=== PATIENT | male | born 1965 | race African-American/Black ===

== ENCOUNTER 2023-04-09 18:17 | Emergency (ER) | payer OTHER, SELFPAY ==
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
[2023-04-09 18:21] VITALS: BP 181/92; PULSE 81; RESP 15; TEMP 36.4; O2SAT 100
[2023-04-09] MEDS: ACETAMINOPHEN 500 MG TABLET 1000 MG PO (19:36)
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
[2023-04-09 20:15] VITALS: BP 128/82; PULSE 73; O2SAT 98
== END 2023-04-09 20:41 | disposition home or self-care (01) ==
PROVIDERS: Emergency Provider Physician Assistant
DX: S09.90XA Unspecified injury of head, initial encounter (principal); S16.1XXA Strain of muscle, fascia and tendon at neck level, initial encounter; E11.9 Type 2 diabetes mellitus without complications; I10 Essential (primary) hypertension; M47.812 Spondylosis without myelopathy or radiculopathy, cervical region; V49.40XA Driver injured in collision with unspecified motor vehicles in traffic accident, initial encounter
CPT/HCPCS: 70450; 72125; 99284; A9270

== ENCOUNTER 2025-01-14 12:55 | Outpatient (CLI) | payer OTHER, SELFPAY ==
--- NOTE | ~2025-01-14 | CT_ITS ---
CT sinus wo con Ordering provider: Beatrice Mosley History: . NASAL POLYPS . Comparison: April 09, 2023 Technique: Thin slice Scans CT of the paranasal sinuses was performed with coronal and sagittal refor matted images. No IV contrast. . Automated exposure control and iterative reconstruction technique w ere employed. The dose-length product was 223.41 mGy-cm. Findings: NASAL SEPTUM: Mild right nasal septal deviation. OSTEOMEATAL UNITS: Postoperative changes seen in the medial wall of both maxillary sinuses. NASAL TURBINATES AND NASOPHARYNX: Normal inferior 10 minutes. PARANASAL SINUSES: Bilateral maxillary and sphenoid sinus disease. right ethmoid, and frontal sinus disease. Density in the right frontal and ethmoid sinuses which may indicate inspissated mucus versus fungal infection. Clinical evaluation advised. VISUALIZED MASTOIDS: Normal as visualized. BONES: Normal. SUPERFICIAL SOFT TISSUES/VISUALIZED BRAIN PARENCHYMA: Normal. IMPRESSION: Pansinusitis. Postoperative changes in the medial wall of both maxillary sinuses. Increased density in the right frontal and ethmoid sinuses which may indicate inspissated mucus versu s fungal infection. Further evaluation advised. Reviewed, dictated and finalized at location A. IMPRESSION: Pansinusitis. Postoperative changes in the medial wall of both maxillary sinuses. Increased density in the right frontal and ethmoid sinuses which may indicate i nspissated mucus versus fungal infection. Further evaluation advised.
--- OUTSIDE RECORDS SUMMARY | 2025-01-14 13:01 | XMS_ITS | Clinical Summary ---
Author Organization [facility] Address [address] [facility] [address] [place] [phone] Phone Care Team Providers Care Still Tender Name Role Phone Bernabe Cooper MD Primary Care Provider [phone] Demetris Barbosa MD Unavailable [phone] Allergies Active Allergy Reactions Criticality Noted Date Comments Aspirin Unknown Low 03/17/2017 Patient states he was told not to take ASA since he has asthma. Bee Pollen Unknown 03/17/2017 Per allergy testing - Dr. Rolon Grass Pollen Unknown 01/25/2022 Allergy testing indicated Mold Unknown 01/25/2022 Per allergy testing Medications fluticasone (FLONASE) 50 mcg/actuation nasal spray 2 sprays daily. 3 spray 4 03/19/20 17 Active flash glucose scanning reader misc 1 Device daily Please dispense 1 freestyle antonia reader 1 each 11/15/19 19 Active nebulizer and compressor deviceIndications :Wheezing 1 Units as directed Que Respironics InnoSpire Go Portable Mesh Nebulizer 1 each 01/04/20 20 Active clindamycin (CLEOCIN T) 1 % lotionIndications :Scalp inflammation Apply 1 application topically 2 (two) times a day 09/18/19 21 Active olopatadine (PATADAY) 0.2 % ophthalmic solutionIndicatio ns:Allergic Conjunctivitis Administer 1 drop into both eyes daily 15 mL 7 08/05/[address] (NexIUM) 40 mg capsule Take 1 capsule (40 mg total) by mouth daily before breakfast 30 capsule 5 08/20/19 22 Active Additional Information Patient taking differently:40 mg oralDaily PRN, Reported on 02/01/2022 ketoconazole 1 % shampoo Apply 1 application topically every 3 (three) days Active clindamycin (CLEOCIN T) 1 % external solution APPLY ON SCALP ONCE DAILY IN THE MORNING 01/18/20 22 Active albuterol HFA (PROVENTIL HFA,VENTOLIN HFA,PROAIR HFA) 90 mcg/actuation inhalerIndication s:Bronchospasm Prevention Inhale 1-2 puffs every 6 (six) hours as needed for wheezing 1 each 04/26/20 22 Active dicyclomine (BENTYL) 20 mg tablet Take 1 tablet (20 mg total) by mouth every 6 (six) hours 120 tablet 08/03/19 23 Active hydrOXYzine (ATARAX) 10 mg tablet Take 1 tablet (10 mg total) by mouth every 4 (four) hours as needed for itching 90 tablet 08/03/19 23 Active mometasone (ELOCON) 0.1 % cream APPLY CREAM TOPICALLY ON FOREHEAD ONCE DAILY 09/01/19 23 Active albuterol 2.5 mg /3 mL (0.083 %) nebulizer solution Take 3 mL (2.5 mg total) by nebulization every 6 (six) hours as needed for wheezing or shortness of breath 60 mL 08/08/19 24 Active metFORMIN (GLUCOPHAGE) 500 mg tablet Take 1 tablet (500 mg total) by mouth 2 (two) times a day with meals 180 tablet 09/14/19 24 Active blood-glucose sensor (FreeStyle Antonia 3 Sensor) device 1 Units every 2 (two) weeks Antonia 3 reader 2 units a month 2 each 09/25/19 24 Active testosterone 20.25 mg/1.25 gram (1.62 %) gel in metered-dose pump Apply 1 Pump topically daily 75 g 12/11/19 24 Active betamethasone dipropionate (DEL-BETA) 0.05 % cream Apply topically 2 (two) times a day 45 g 12/11/19 24 Active albuterol-budeson trevor (Airsupra) 90-80 mcg/actuation HFA aerosol inhaler Inhale 1 puff every 4 (four) hours 5.9 g 12/11/19 24 Active ezetimibe-simvast atin (VYTORIN) 10-20 mg per tablet Take 1 tablet by mouth nightly 90 tablet 4 12/12/19 24 Active insulin degludec (TRESIBA) 100 unit/mL (3 mL) pen for injection INJECT 0.1 ML (10 UNITS TOTAL) UNDER THE SKIN DAILY 3 mL 3 02/07/20 24 Active pen needle, diabetic (NovoFine Plus) 32 gauge x 1/6 needle Inject 1 Units under the skin daily 100 each 02/24/20 24 Active semaglutide 0.25 mg or 0.5 mg (2 mg/3 mL) pen injector injectionIndicati ons:type 2 diabetes mellitus Inject 0.5 mg under the skin every 7 days 3 mL 02/28/20 24 Active montelukast (SINGULAIR) 10 mg tablet Take 1 tablet (10 mg total) by mouth nightly 90 tablet 3 02/28/20 24 Active blood-glucose sensor (FreeStyle Antonia 3 Plus Sensor) device 1 Units every 2 (two) weeks 2 each 05/12/20 24 Active ergocalciferol (VITAMIN D) 50,000 unit capsule TAKE 1 CAPSULE BY MOUTH ONE TIME PER WEEK 12 capsule 1 08/03/19 25 Active losartan-hydrochl orothiazide (HYZAAR) 100-25 mg per tablet TAKE 1 TABLET BY MOUTH EVERY DAY 90 tablet 3 08/09/19 25 Active cetirizine (ZyrTEC) 10 mg tablet Take 1 tablet (10 mg total) by mouth daily as needed for allergies 30 tablet 11 01/05/20 25 Active prednisoLONE acetate (PRED FORTE) 1 % ophthalmic suspension Apply 2 drops to the left nostril in head back position twice a day for 14 days 5 mL 01/05/20 25 Active pseudoephedrine (SUDAFED) 30 mg tabletIndications :Nasal Congestion Take 1 tablet (30 mg total) by mouth 2 (two) times a day as needed for congestion 30 tablet 01/05/20 25 Active budesonide (PULMICORT) 0.5 mg/2 mL nebulizer solution Mix 1 capsule/ampule in 250 mL of saline irrigations (NeilMed Sinus Rinse Bottle) and irrigate each nostril with half of the bottle twice daily. 360 mL 4 01/05/20 25 Active cetirizine (ZyrTEC) 10 mg tablet Take 1 tablet (10 mg total) by mouth daily as needed for allergies 025 Discontinu ed(Alterna te therapy) budesonide (PULMICORT) 0.5 mg/2 mL nebulizer solution Mix 1 capsule/ampule in 250 mL of saline irrigations (NeilMed Sinus Rinse Bottle) and irrigate each nostril with half of the bottle twice daily. 360 mL 4 09/15/19 23 025 Discontinu ed(Reorder ) prednisoLONE acetate (PRED FORTE) 1 % ophthalmic suspension Apply 2 drops to the right nostril in head back position twice a day for 14 days 5 mL 06/22/20 24 025 Discontinu ed(Alterna te therapy) amoxicillin-clavu lanate (AUGMENTIN) 875-125 mg per tablet Take 1 tablet by mouth 2 (two) times a day for 10 days 20 tablet 12/22/19 25 025 Active Problems Problem Noted Date Diagnosed Date Type 2 diabetes mellitus with hyperglycemia 11/2023 QUINTIN on CPAP 08/03/2022 Assessment & Plan (12/11/2023 2:35 PM CDT): Patient states he has not been able to tolerate his current CPAP Preventative health care 04/26/2022 Assessment & Plan (12/11/2023 8:39 AM CDT): Patient here to today for physical exam. The patient was evaluated and all health maintenance objectives were discussed and addressed. Assessment & Plan (04/26/2022 8:12 AM CDT): Patient here to today for physical exam. The patient was evaluated and all health maintenance objectives were discussed and addressed. SOB (shortness of breath) 12/02/2019 Fatigue 07/29/2019 Sleep-disordered breathing 07/29/2019 Assessment & Plan (01/04/2020 3:26 PM CDT): He has not had his sleep study he will follow-up with Dr. Clifton Cervical disc disease 08/13/2018 Assessment & Plan (04/26/2022 9:14 AM CDT): Reports no significant issues with neck pain currently Assessment & Plan (08/13/2018 3:52 PM BOX SPRING FRAME BUILDER): He was seen in emergency room had an x-ray of his cervical spine which showed evidence of possible C6-C7 disease he is having numbness tingling down his right arm X-ray is consistent with a cervical disc disease we will order an MRI consider orthopedic spine Malignant neoplasm screen 07/22/2018 Overview (07/22/2018): Added automatically from request for surgery [id number] Chest wall pain 07/15/2018 Assessment & Plan (05/21/2019 2:39 PM BOX SPRING FRAME BUILDER): We had a discussion today about his chest wall muscle discomfort I believe this is most likely musculoskeletal begin with an EKG to rule out cardiac etiology. Patient is improving somewhat from his asthma exacerbation. Assessment & Plan (07/22/2018 11:23 AM BOX SPRING FRAME BUILDER): Muscular: Treat with Naprosyn 500 mg 1 p.o. B.i.d. P.r.n. with food for 10 days and Flexeril muscle relaxer p.r.n.. If no improvement contact office. Patient verbalizes understanding. Type 2 diabetes mellitus wit hout complication, with long-term current use of insulin 12/30/2017 Assessment & Plan (11/09/2022 10:39 AM CDT): CGM shows an average blood sugar of 200 over the last 90 days. Patient reports that he is not been attentive to a low-carbohydrate diet. We will check an A1c today we discussed various options for treatment however he believes that he can be a little more attentive to diet. Continues on Tresiba. Continues on Ozempic we will increase this dose to 1 mg Assessment & Plan (08/03/2022 10:46 AM BOX SPRING [employer] BUILDER): We had a long discussion about diabetes today his the day CGM is showing an average of 150. Last A1c of 6.6. He states he is having quite a bit of GI distress will switch him to metformin ER. A1c to be due today Assessment & Plan (04/26/2022 9:11 AM CDT): We had a long discussion about diabetes today his the day CGM is showing an average of 155 however he has not been using medicine appropriately he takes metformin/Tresiba as needed he has stopped Ozempic we will restart him on metformin 500. Restarted Ozempic 0.5. Discussed Tresiba after A1c is complete today Assessment & Plan (01/04/2020 3:26 PM CDT): Antonia reader is showing that his 90 day average is 160/30 day average 131. At this point A1c is due on March 03 continue current regimen Assessment & Plan (12/17/2019 8:39 AM CDT): We will recheck an A1c today is last was controlled however I am concerned that today's reading will be high, he does have a Antonia reader. Despite using this CGM he is still having episodes of elevated blood sugars. He has been checking his blood sugars 4 times a day and injecting insulin multiple times on occasion. Addendum note A1c is 8.5 he has poorly controlled, we will adjust his insulin Assessment & Plan (06/11/2019 1:42 PM BOX SPRING FRAME BUILDER): I have reviewed past medical, surgical, family, social and medication history. We have discussed the need for balanced nutrition utilizing the plate method which can be found at myplate.gov. We have discussed glycemic goals. Patient will call for a blood sugar below 80 or above 200. I advise patient to complete annual eye exams and biannual dental exams. I have encouraged patient to check feet nightly for any changes and to wear appropriate foot wear. I have explained to patient the importance of compliance with medications and follow up. I have also explained the risks of uncontrolled diabetes to patient, including blindness, loss of limp, kidney failure, stroke or heart attack. Patient verbalized understanding. Assessment & Plan (11/14/2018 1:05 PM CDT): Diabetes is improving with treatment. Regular aerobic exercise. Diabetes will be reassessed in 6 months. His c GM states that his 90 day average is 125 recheck him today Assessment & Plan (05/16/2018 1:05 PM [employer]OX SPRING [employer] BUILDER): Diabetic control has been good with review of patient's last a1c, I have reviewed and addressed all of the other diabetic benchmarks including the diabetic eye exam, foot exam, renal protection, reaching LDL goal of <100. Will make adjustments as needed to current regimen. a1c 5.3 excellent Assessment & Plan (02/21/2018 2:07 PM CDT): Diabetes is improving with treatment. Regular aerobic exercise. Diabetes will be reassessed in 6 months. He is doing tremendously well we reviewed his see GM numbers his last week average was 107 he has since stopped his insulin he has decreased the metformin to once a day We will recheck an A1c on April 01 Assessment & Plan (01/02/2018 10:06 AM CDT): This is a new onset. A1c of 10.1. He was diagnosed essentially in the emergency room we will begin with continue his metformin add low-dose tresiba 8 units at night. Continue to follow him here as clinical course dictates he will be started on a for[MD] natonia system We will also refer him to diabetic teaching see him back in the next few weeks Allergic fungal sinusitis (AFS) 12/10/2017 Assessment & Plan (04/26/2022 9:10 AM CDT): He follows closely with his ENT physician and continues on nasal saline irrigation/budesonide Assessment & Plan (12/12/2017 10:12 AM CDT): As per ENT/allergy Chronic rhinitis 12/10/2017 Nasal polyposis 12/10/2017 Asthma 10/21/2017 Assessment & Plan (12/11/2023 2:35 PM CDT): Stable on current dosing of nebulizer/asthma treatment. We are going to give him a trial on the new air supra. I gave him a prescription today Assessment & Plan (11/09/2022 10:40 AM CDT): Stable on current dosing of nebulizer/asthma treatment Allergic rhinitis 10/21/2017 Hypertensive disorder 10/21/2017 Essential hypertension 08/28/2017 Assessment & Plan (01/04/2020 3:25 PM CDT): Hypertension is improving with treatment. Weight loss. Blood pressure will be reassessed in 3 months. Assessment & Plan (11/14/2018 1:04 PM CDT): Hypertension is improving with treatment. Weight loss. Blood pressure will be reassessed in 3 months. Assessment & Plan (12/12/2017 10:16 AM CDT): Hypertension is improving with treatment. Weight loss. Blood pressure will be reassessed in 3 months. Assessment & Plan (08/28/2017 9:41 AM BOX SPRING FRAME BUILDER): Improved with lisinopril hydrochlorothiazide 10/12.5 mg daily. BMP today. Instructed patient he is to continue medication until instructed otherwise. Chronic sinusitis 08/28/2017 Assessment & Plan (08/28/2017 9:42 AM BOX SPRING [employer]AME BUILDER): Patient is scheduled for sinus surgery. He needed to get his blood pressure lower prior to surgery. This has been achieved today. Snoring 08/16/2017 Assessment & Plan (08/16/2017 9:24 AM BOX SPRING [employer] BUILDER): Refer to Dr. Clifton for sleep apnea evaluation. This may occur after surgery. Chronic rhinitis 08/13/2017 Chronic sinusitis 07/22/2017 BMI 35.0-35.9,adult 03/19/2017 Overview (12/12/2017): BMI Follow-up includes: nutrition counseling, exercise counseling and education provided. Assessment & Plan (06/11/2019 1:17 PM [employer]OX [employer]ING [employer] BUILDER): BMI Follow-up includes: nutrition counseling, exercise counseling and education provided. Assessment & Plan (08/13/2018 3:28 PM BOX [employer]ING [employer] BUILDER): BMI Follow-up includes: nutrition counseling, exercise counseling and education provided. Assessment & Plan (07/22/2018 10:48 AM BOX [employer]ING [employer] BUILDER): BMI Follow-up includes: nutrition counseling, exercise counseling and education provided. Assessment & Plan (03/27/2018 11:40 AM CDT): BMI Follow-up includes: nutrition counseling, exercise counseling and education provided. Assessment & Plan (12/12/2017 10:12 AM CDT): I had a discussion with the patient rearding weight loss and maintaining a healthy BMI. We reviewed information and samples for SAXENDA. At this point the patient is interested in beginning this medication. I will follow-up in the next 3 weeks as to its effectivity and if any issues. Assessment & Plan (08/28/2017 9:20 AM BOX [employer]ING [employer] BUILDER): BMI Follow-up includes: nutrition counseling, exercise counseling and education provided. Assessment & Plan (08/16/2017 8:51 AM BOX [employer]ING [employer] BUILDER): BMI Follow-up includes: nutrition counseling, exercise counseling and education provided. Assessment & Plan (03/19/2017 10:07 AM CDT): BMI Follow-up includes: nutrition counseling, exercise counseling and education provided. Subacute frontal sinusitis 03/19/2017 Assessment & Plan (03/27/2018 12:18 PM CDT): Start Levaquin 500 mg daily for 10 days. Continue saline nasal irrigation. Follow-up with ENT. Patient verbalizes understanding. Assessment & Plan (03/19/2017 10:51 AM CDT): Cont on augmentin He was recently seen at an [facility] urgent care continues to have quite a bit of problems with sinusitis including green nasal drainage unable to breathe out of the right side of his nostril we will add Mucinex at [facility]on[facility] Hemorrhoids 12/02/2015 Seborrheic eczema 01/19/2014 Assessment & Plan (11/09/2022 8:55 AM CDT): Follows with Dr ESCOBAR< will have him follow up, will restart doxy 50 BID for 3 months Superficial laceration 01/19/2014 Rash 12/15/2013 Gastroesophageal reflux disease 11/21/2013 Overview (10/12/2016): ESOPHAGEAL REFLUX Assessment & Plan (08/03/2022 10:46 AM BOX [employer]ING [employer] BUILDER): Stable on current regimen of Nexium 40 Assessment & Plan (04/26/2022 9:11 AM CDT): Continues Assessment & Plan (11/14/2018 1:04 PM CDT): Stable on current regimen Food poisoning Resolved Problems Problem Noted Date Diagnosed Date Resolved Date BMI 36.0-36.9,adult 11/14/2018 06/11/20 19 Overview (11/14/2018): BMI Follow-up includes: nutrition counseling, exercise counseling and education provided. Influenza A 09/18/2018 04/26/2022 Mild intermittent asthma without complication 09/19/19 19 12/11/2023 Assessment & Plan (08/03/2022 10:51 AM BOX [employer]ING FR[employer] BUILDER): Reports no significant issues currently. Continues on Singulair/albuterol/nebulizer as needed Assessment & Plan (05/12/2019 2:17 PM BOX [employer]ING [employer] BUILDER): He had a recent visit to [facility] ED. I reviewed all of his diagnostic work including a normal chest x-ray, negative flu swab normal lab work. He was diagnosed with a asthma exacerbation was started on prednisone as well as albuterol. He states that he is continue have a severely tight chest with wheezing coughing up/blowing out some yellow mucus. Start him on Augmentin. We will given a steroid taper in the form of prednisone 60. We will start him on Tresiba 6 units nightly as he is worsening in terms of blood sugar 230-300 Dehydration syndrome 09/18/2018 022 Acute otitis media 08/28/2017 Assessment & Plan (08/28/2017 9:42 AM BOX SPRING FRAME BUILDER): Augmentin. Patient should contact his ENT and let him know that he is taking an antibiotic again. Elevated blood pressure reading 08/16/2017 08/28/2017 Assessment & Plan (08/16/2017 9:24 AM BOX SPRING FR[employer] BUILDER): Start lisinopril 10/hydrochlorothiazide 12.5 mg daily. Keep a blood pressure log and return to the office on August 28 to re-evaluate blood pressure and check a BMP. Allergic fungal sinusitis 08/13/2017 Asthma exacerbation, mild 11/21/2013 Overview (10/10/2016): ASTHMA NOS Assessment & Plan (01/04/2020 3:25 PM CDT): Patient has significant severe asthma which requires a nebulizer we will try to get him a portable nebulizer for home Assessment & Plan (12/02/2019 3:15 PM CDT): I believe that his shortness breath/cough and bronchitis symptoms are somewhat multifactorial including asthma exacerbation/allergies. Possible post bronchitic sx. At this point we will continue him on nebulizers at home. Give him an injection of Depo-Medrol 40. Continue Mucinex. Hold on a chest x-ray as he is improving. I will order a COVID -19 IgG test follow-up in 2 weeks Assessment & Plan (11/14/2018 1:04 PM CDT): He was recently seen at the emergency room he has not have any new complaints current Encounters Date Type Department Care Team Description 01/12/[address] [facility] Allergy and Immunology [address] [place] [address] Christen Espinal RN 01/05/[address] [facility] Allergy and Immunology [address] [place] [address] Christen Gruber RN 01/04/2025 9:00 AM CDT Office Visit 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 Otolaryngology [address] [place] [phone] Valeri Zuniga MS 12/21/2024 Orders Only [facility] [address] [place] [phone] Bernabe Cooper MD 12/02/2024 Orders Only [facility] [address] [place] [phone] Bernabe Cooper MD 11/17/[address] [facility] Otolaryngology [address] [place] [phone] Valeri Zuniga MS from Last 3 Months Immunizations Immunization Administration Dates Next Due Influenza, Quadrivalent, Spl it, Intramuscular 05/04/2016 Influenza, Quadrivalent, Spl it, Preservative Free, Intramuscular 04/26/2022,04/04/2019,05/16/2018 Influenza, Trivalent, Recomb inant, Egg Free, Preservative Free, Antibiotic Free, IM (FLUBLOK) 05/03/2015 Influenza, Unspecified 04/07/2021(Deferr ed: Patient decision),03/08/2019,06/21/2017 Moderna SARS-CoV-2 Monovalen t Vaccination (12+ YRS) 05/25/2021 Pfizer SARS-CoV-2 Monovalent Vaccination (12+ Yrs) PURPLE 07/25/2022,11/01/2020,10/11/2020 Pneumococcal Conjugate Pcv20 11/09/2022 Tdap 11/12/2022 ZOSTER Recombinant 08/03/2022,05/07/2022, 020 Surgical History Surgery Date Site/Laterality Comments SINUS SURGERY 08/08/2017 - 09/04/2017 COLONOSCOPY 07/08/2005 - 07/07/2006 Medical History Medical History Date Comments Asthma Sinusitis Hypertension 2018 DXD 2018 Diabetes mellitus (HCC) 2018 Dxd 2018 Food poisoning Sleep apnea September 2021 In process of ge tting CPAP machine Obesity Family History Medical History Relation Name Comments Hypertension Father Ramirez Conroy Hypertension Mother Kassy Diaz Hypertension; Diabetes Mother's Brother 2 Phoenix Pérez Diabetes mellitus; Diabetes Mother's Brother 3 Jaleel Pérez Colon polyps Other uncle Anesthesia problems Neg Hx Relation Name Status Comments Father Ramirez Conroy Mother Kassy Diaz Alive Mother's Brother 1 Alive Mother's Brother 2 Phoenix Pérez Mother's Brother 3 Jaleel Pérez Other uncle Social History Tobacco Use Types Packs/Day Years Used Date Smoking Tobacco: Never Smokeless Tobacco: Never Alcohol Use Standard Drinks/Week Comments No 0 (1 standard drink = 0.6 oz pur e alcohol) AUDIT-C Answer Date Recorded Q1: How often do you have a drink containing alcohol? Never 02/01/2022 Q2: How many drinks containi ng alcohol do you have on a typical day when you are drinking? Patient does not drink Q3: How often do you have si x or more drinks on one occasion? Never 02/01/2022 PHQ-2 Answer Date Recorded PHQ-2 Total Score (If total score is 3 or more points, staff should administer the PHQ-9) 0 12/11/2023 Personal Safety Answer Date Recorded Have you ever been in or are you currently in a harmful physical or emotional relationship or is someone making you feel afraid or unsafe? Denies 03/15/2023 Sex and Gender Information Value Date Recorded Sex Assigned at Not on file Legal Sex Male 9:23 PM BOX SPRING FRAME BUILDER Gender Identity Male 03/12/2022 10:01 PM CDT Sexual Orientation Straight 03/12/2022 10 :01 PM CDT Occupation Industry Job Start Date Job End Date working Not on file Not on file Not on file Obstetrics History Last Filed Vital Signs Vital Sign Reading Time Taken Comments Blood Pressure 140/82 12/11/2023 8:17 AM CDT Pulse 87 12/11/2023 8:17 AM CDT Temperature 36.9 C (98.4 F) 03/15/2023 7:49 AM CDT Respiratory Rate 16 03/15/2023 7:49 AM CDT Oxygen Saturation 96% 12/11/2023 8:17 AM CDT Inhaled Oxygen Concentration - - Weight 114.3 kg (252 lb) 01/04/2025 10:23 AM CDT Height 182.9 cm (6') 01/04/2025 10:23 AM CDT Body Mass Index 34.18 01/04/2025 10:23 AM CDT Plan of Treatment Health Maintenance Due Date Last Done Comments Hepatitis B Screening 10[birth year]17/1983 Covid-19 Vaccine (2023-08 5 season) 2024 07/25/2022, 05/25/2021, 11/01/2020, Additional history exists Hemoglobin A1C 06/11/2024 12/11/2023, 11/05, 08/03/2022, Additional history exists Dilated Eye Exam 09/10/2024 09/11/2023, , 08/21/2021, Additional history exists Albumin Creatinine Ratio, Urine 12/10/2024 12/11/2023, 08/03/2022, 06/11/2019 Depression Screening 12/10/2024 12/11/2023, 04/26/2022, 06/11/2019, Additional history exists Foot Exam 12/10/2024 12/11/2023, 04/08, 06/11/2019, Additional history exists Lipid Panel 12/10/2024 12/11/2023, 07/09, 04/26/2022, Additional history exists Regular Well Visit/Exam 18-64 12/10/2024 12/11/2023, 04/26/2022 eGFR 12/10/2024 12/11/2023, 11/05, 08/03/2022, Additional history exists Influenza Vaccine (#1) 2025 , 04/04/2019, 03/08/2019, Additional history exists Prostate Cancer Screening-PSA 12/10/2025, 04/26/2022, 12/02/2019 Colon Cancer Screening-Colonoscopy 08/28/2028 08/28/2018 DTaP/Tdap/Td Vaccine (2 - Td or Tdap) 11/12/2032 11/12/2022 Colon Cancer Screening-CT Colonography Discontinued 08/28/2018 Colon Cancer Screening-DNA Stool Discontinued 08/28/19 19 Colon Cancer Screening-FIT Discontinued 08/28/2018 Colon Cancer Screening-Sigmoidoscopy Discontinued 08/28/2018 Zoster Vaccine Completed 08/03/2022, 1007/2021, 01/04/2020 Pneumococcal vaccine <65 Completed 11/09/2022 Hepatitis C Screening Completed 12/11/2023 Procedures Procedure Name Priority Date/Time Associated Diagnosis Comments HEPATITIS C ANTIBODY Routine 12/11/2023 2:21 PM CDT Preventative health care Need for hepatitis C screening test PSA SCREEN Routine 12/11/2023 2:21 PM CDT Prostate cancer screening EGFR Routine 12/11/2023 2:20 PM CDT Preventative health care Low testosterone in male LIPID PANEL Routine 12/11/2023 2:20 PM CDT Preventative health care HEMOGLOBIN A1C Routine 12/11/2023 2:18 PM CDT Preventative health care Type 2 diabetes mellitus without complication, with long-term current use of insulin (HCC) ALBUMIN CREATININE RATIO, URINE Routine 12/11/2023 2:11 PM CDT Preventative health care Type 2 diabetes mellitus without complication, with long-term current use of insulin (HCC) DIABETIC EYE EXAM Routine 09/11/2023 COLONOSCOPY 08/28/2018 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 Results from different manufacturers or methods may not be comparable. Serial testing should be performed using the same method. Current interpretive data last revised 21. Blood 12/11/2023 2:21 PM CDT 12/11/2023 2:21 PM CDT Bernabe Cooper MD LAB BLOOD ORDERABLES Final Result Performing Organization Address [facility] Co de Phone Number ANDRES TOMASCH [id number] [place] [address] * Hepatitis C antibody Blood (12/11/2023 2:21 PM CDT) Hep C Ab Nonreactive Nonreactive Comment: Interpretive Data Nonreactive: Antibodies to HCV not detected. Does NOT exclude the possibility of recent exposure to HCV. Equivocal: Equivocal for HCV antibodies. Supplemental molecular testing will be automatically performed to determine infection status in accordance with current CDC screening recommendations. Reactive: Positive for HCV antibodies. This may represent current or past HCV infection. Supplemental molecular testing will be automatically performed to determine current infection status in accordance with current CDC screening recommendations. Interpretive data was last revised on 2019. Testing performed by: [facility], [facility] [facility], [place]., [address] Blood 12/11/2023 2:21 PM CDT 12/11/2023 4:49 PM CDT Bernabe Cooper MD LAB MICROBIOLOGY - GENERAL ORDERABLES Edited Result - Final Performing Organization Address [facility] Co de Phone Number ANDRES [facility] [id number] [place], [place] [id number] * eGFR (12/11/2023 2:20 PM CDT) eGFR 87 >=60 mL/min/1. 73 m2 Comment: Interpretive Data Reference Interval Normal >/= 90 mL/min/1.73m2 Mildly decreased* 60 - 89 mL/min/1.73m2 Mildly to moderately decreased 45 - 59 mL/min/1.73m2 Moderately to severely decreased 30 - 44 mL/min/1.73m2 Severely decreased 15 - 29 mL/min/1.73m2 Kidney Failure < 15 mL/min/1.73m2 *Relative to young adult level Estimated glomerular filtration rate is determined by the 2020 CKD-EPI equation recommended by the National Kidney Foundation (A Unifying Approach to GFR Estimation: Recommendations of the NKF-ASK Task Force on Reassessing the Inclusion of Race in Diagnosing Kidney Disease, JASN 2020). The CKD-EPI equation should not be used for patients with unstable renal function and has not been validated in children and those over 70. Current interpretive data was last reviewed 2021. Blood 12/11/2023 2:20 PM CDT 12/11/2023 2:25 PM CDT Bernabe Cooper MD LAB BLOOD ORDERABLES Final Result ANDRES [facility] [address] [facility]. Department [place] [address] * (ABNORMAL) Lipid panel (12/11/2023 2:20 PM CDT) Cholesterol 258(H) 30 - 199 mg/dL Comment: Interpretive Data Ages < or = 19 years Acceptable: <170 mg/dL Borderline high: 170-199 mg/dL High: >or= 200 mg/dL Ages > or = 20 years Desirable: <200 mg/dL Borderline high: 200-239 mg/dL High: >or= 240 mg/dL Literature References: 1. Expert Panel on Integrated Guidelines for Cardiovascular Health and Risk Reduction in Children and Adolescents. Pediatrics 2011;128:S213 2. NCEP Expert Panel. Circulation 2004;110:227 Current Interpretive Data was last revised on 2018. Triglycerides 352(H) <=149 mg/dL ANDRES MCBRIDE Comment: Interpretive Data Ages < or = 9 years Acceptable: <75 mg/dL Borderline high: 75-99 mg/dL High: >or= 100 mg/dL Ages 10 to 20 years Acceptable: <90 mg/dL Borderline high: 90-129 mg/dL High: >or= 130 mg/dL Ages > or = 20 years Desirable: <150 mg/dL Borderline high: 150-199 mg/dL High: 200-499 mg/dL Very high: >or= 499 mg/dL Literature References: 1. Expert Panel on Integrated Guidelines for Cardiovascular Health and Risk Reduction in Children and Adolescents. Pediatrics 2011;128:S213 2. NCEP Expert Panel. Circulation 2004;110:227 Current Interpretive Data was last revised on 2018. HDL 48 >=40 mg/dL ANDRES MCBRIDE Comment: Interpretive Data Ages < or = 19 years Acceptable: >45 mg/dL Borderline low: 40-45 mg/dL Low: <40 mg/dL Ages > or = 20 years Desirable: >or= 60 mg/dL Low: <40 mg/dL Literature References: 1. Expert Panel on Integrated Guidelines for Cardiovascular Health and Risk Reduction in Children and Adolescents. Pediatrics 2011;128:S213 2. NCEP Expert Panel. Circulation 2004;110:227 Current Interpretive Data was last revised on 2018. LDL, calculated 140(H) <=129 mg/dL ANDRES MCBRIDE Comment: Interpretive Data Ages < or = 19 years Acceptable: <110 mg/dL Borderline high: 110-129 mg/dL High: >or= 130 mg/dL Ages > or = 20 years Optimal: <100 mg/dL Near optimal: 100-129 mg/dL Borderline high: 130-159 mg/dL High: >160 mg/dL Literature References: 1. Expert Panel on Integrated Guidelines for Cardiovascular Health and Risk Reduction in Children and Adolescents. Pediatrics 2011;128:S213 2. NCEP Expert Panel. Circulation 2004;110:227 Current Interpretive Data was last revised on 2018. Non-HDL Cholesterol 210 mg/dL ANDRES MCBRIDE Comment: Interpretive Data Ages < or = 19 years Acceptable: <120 mg/dL Borderline high: 120-144 mg/dL High: >145 mg/dL Ages > or = 20 years When triglycerides are >200 mg/dL, Non-HDL cholesterol is a secondary target of therapy with treatment goals that are 30 mg/dL greater than the LDL cholesterol target. Literature References: 1. Expert Panel on Integrated Guidelines for Cardiovascular Health and Risk Reduction in Children and Adolescents. Pediatrics 2011;128:S213 2. NCEP Expert Panel. Circulation 2004;110:227 Current Interpretive Data was last revised on 2018. Chol/HDL ratio 5 ANDRES MCBRIDE Blood 12/11/2023 2:20 PM CDT 12/11/2023 2:25 PM CDT Bernabe Cooper MD LAB BLOOD ORDERABLES Final Result Performing Organization Address [facility] de Phone Number [facility] [id number] [facility]. [facility] [place], [place] [phone] * (ABNORMAL) Hemoglobin A1c (12/11/2023 2:18 PM CDT) Pathologist [facility] Hgb A1C 7.0(H) 4.0 - 5.6 % Estimated Average Glucose 154 mg/dL ANDRES MCBRIDE Comment: The ADA recommends reporting an estimated Average Glucose (eAG) with all Hemoglobin A1c results using the equation derived from a study of 507 normal and diabetic adults. Minority populations were underrepresented and children were not included. (Diabetes Care 31:9424-5557, 2008). The eAG is not equivalent to a fasting glucose. Blood 12/11/2023 2:18 PM CDT 12/11/2023 2:18 PM CDT Bernabe Cooper MD LAB BLOOD ORDERABLES Final Result Performing Organization Address [facility] de Phone Number [facility] [id number] [facility]. [facility] [place] [address] * Albumin Creatinine Ratio, Urine (12/11/2023 2:11 PM CDT) Pathologist [facility] Albumin Ur <12.0 mg/L Comment: Interpretive Data No reference range established. Current interpretive data was last revised 2018. Testing performed by: [facility], [facility] [facility], [place]., [address] Creatinine Ur 213.4 mg/dL ANDRES MCBRIDE Comment: Interpretive Data No reference range established. Current interpretive data was last revised 2018. Testing performed by: [facility], [address] [place] [address]., [address] Albumin Creatinine Ratio, Ur <6 1 - 29 mg/g ANDRES MCBRIDE Comment:Testing performed by : [facility], [address] [place] [address]., [address] Urine 12/11/2023 2:11 PM CDT 12/11/2023 2:11 PM CDT us Bernabe Cooper MD LAB URINE ORDERABLES Final Result [facility] [address] [facility]. Department [place] [address] * Diabetic Eye Exam (09/11/2023) us Historical Provider HEALTH MAINTENANCE Final Result * COLONOSCOPY (08/28/2018 9:01 AM BOX [employer]ING FRAME BUILDER) Anatomical Region Laterality Modality Other Narrative Procedure Note Demetris Barbosa MD - 08/28/2018 9:01 AM CST ENDOSCOPY LAB Patient Name: Vamsi Conroy Procedure Date: 08/28/2018 9:01 AM Date of : 1965 Admit Type: Outpatient Age: 52 Gender: Male Attending MD: Demetris Barbosa M.D. Room: [facility] Note Status: Finalized Procedure: Colonoscopy Indications: Screening for colorectal malignant neoplasm, This isthe patient's first colonoscopy Providers: Demetris Barbosa M.D. Referring MD: Medicines: Monitored Anesthesia Care Complications: No immediate complications. Estimated Blood Loss: Estimated blood loss: none. Procedure: Pre-Anesthesia Assessment: - Immediately prior to administration of medications,the patient was re-assessed for adequacy to receivesedatives. The benefits, risks and alternatives of the procedureand sedation were discussed and informed consent wasobtained. All questions were answered. Please refer to the signed informed consent document in the medical record. Thescope was passed under direct vision. The [id number] introduced through the anus and advanced to the cecum, identified by appendiceal orifice and ileocecal valve.The colonoscopy was performed without difficulty. Thepatient tolerated the procedure well. The quality of the bowel preparation was evaluated using the BBPS ([place] Bowel Preparation Scale) with scores of: Right Colon = 2(minor amount of residual staining, small fragments of stool and/or opaque liquid, but mucosa seen well), Transverse Colon = 2 (minor amount of residual staining, small fragments of stool and/or opaque liquid, but mucosaseen well) and Left Colon = 3 (entire mucosa seen well withno residual staining, small fragments of stool or opaque liquid). The total BBPS score equals 7. The bowel preparation used was SUPREP. Bowel prep wasadministered using a split dose. The quality of the bowelpreparation was good. Bowel prep was administered using a singledose. Findings: The perianal and digital rectal examinations were normal. A 3 mm polyp was found in the cecum. The polyp was sessile. The polyp was removed with a jumbo cold forceps. Resection and retrieval were complete. The exam was otherwise without abnormality. Impression: - One 3 mm polyp in the cecum. Resected andretrieved. - The examination was otherwise normal. Recommendation: - Await pathology results. - Repeat colonoscopy in 10 years for surveillance. Demetris Barbosa MD Demetris Barbosa M.D. 08/28/2018 9:41:16 AM Number of Addenda: 0 Note Initiated On: 08/28/2018 9:01 AM Demetris Barbosa MD ENDOSCOPY PROCEDURES Fi nal Result * DIABETES FOOT EXAM (01/02/2018) Diabetic Foot Exam Normal Historical Provider HEALTH MAINTENANCE Final Result from Last 3 Months or Most Recently Relevant to Health Maintenance [facility] [place] HMO Advance Directives For more information, please contact: [phone] * Full Code (Latest Code Status on File) Date Activated Date Inactivated Comments 08/28/2018 8:27 AM 08/28/2018 2:41 PM Care Teams Still Tender Relationship Specialty Start Date End Date Bernabe Cooper MD PCP - General Internal Medicine 10/28/17 Demetris Barbosa MD Surgeon Colon and Rectal Surgery 05/16/22
--- OUTSIDE RECORDS SUMMARY | 2025-01-14 13:01 | XMS_ITS | Clinical Summary ---
Author Organization [facility] [employer] Address [address] [place] [address] Care Team Providers Care Parts Delivery Driver Name Role Phone Unavailable Primary Care Provider Unavailabl e Source Comments [facility],non-owned Affiliates and Associated Physician Practices is amultiple site organization consisting of ambulatory clinics and hospital sitesin [place], [place], [place] and [place]. This disclosure is being madepursuant to the Care Everywhere program and may not contain all information available regarding this patient. Last updated 18.[facility] [employer] Allergies Active Allergy Reactions Criticality Noted Date Comments Aspirin 03/17/2017 Pollen Extract 03/17/2017 Medications * Be aware that medications may not be up to date on this document. Alwaysverify current medications with the patient. 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 Gender Identity Not on file Sexual Orientation Not on file Last Filed Vital Signs Vital Sign Reading Time Taken Comments Blood Pressure 149/96 03/17/2017 11:12 AM CDT Pulse 78 03/17/2017 10:56 AM CDT Temperature 36.9 C (98.4 F) 03/17/2017 10:56 AM CDT Respiratory Rate 18 03/17/2017 10:56 AM CDT Oxygen Saturation 97% 03/17/2017 10:56 AM CDT Inhaled Oxygen Concentration - - Weight 122.5 kg (270 lb) 03/17/2017 10:56 AM CDT Height 182.9 cm (6') 03/17/2017 10:56 AM CDT Body Mass Index 36.62 03/17/2017 10:56 AM CDT Plan of Treatment Health Maintenance Due Date Last Done Comments COLOGUARD (AGES 45-75) - COL ON CA SCREENING 1965 COLON MONITORING 1965 COLONOSCOPY - COLON CA SCREENING 1965 CT COLONOGRAPHY - COLON CA SCREENING 1965 Colorectal Cancer Screening 1965 FIT - COLON CA SCREENING 1965 FLEX SIG - COLON CA SCREENING 1965 LIPID TESTING 1965 HIV SCREENING 1980 HEPATITIS C SCREENING 10/12/1983 DTAP/TDAP/TD VACCINES (1 - Tdap) 1984 HEPATITIS B VACCINE (1 of 3 - 19+ 3-dose series) 1984 PNEUMOCOCCAL VACCINE 50+ (1 of 1 - PCV) 10/17/2015 ZOSTER VACCINE (1 of 2) 10/17/2015 SCREENING FOR DIABETES 03/17/2017 COVID-19 VACCINE ( - 2023-2 5 season) 2024 DEPRESSION SCREENING 07/08/2024 INFLUENZA VACCINE (#1) 2025 HIB VACCINE Aged Out No longer eligi ble based on patient's age to complete this topic HPV VACCINE Aged Out No longer eligi ble based on patient's age to complete this topic MENINGOCOCCAL (Group B) VACC INE SHARED DECISION-MAKING Aged Out No longer eligibl e based on patient's age to complete this topic MENINGOCOCCAL GROUPS A/C/Y/W VACCINE Aged Out No longer eligible b ased on patient's age to complete this topic Insurance [facility] Address: [facility] [id number] [place] [address]
--- OUTSIDE RECORDS SUMMARY | 2025-01-14 13:01 | XMS_ITS | Referral Summary ---
Author Organization [facility] Address [address] [place] [address] Phone Care Team Providers Care Project Construction Assistant Manager Name Role Phone Bernabe Cooper MD Primary Care Provider [phone] Demetris Barbosa MD Unavailable [phone] Encounters Date Type Department Care Team Description 01/12/2025 Telephone [facility] Allergy and Immunology [address] [place] [address] Christen Espinal, GINA 01/05/2025 Telephone [facility] Allergy and Immunology [address] [place] [address] Christen Espinal RN 01/04/2025 Telephone [facility] Otolaryngology [address] [place] [phone] Valeri Zuniga MS 01/04/2025 9:00 AM CDT Office Visit [facility] ENT [address] [place] [phone] Luly Kessler MD Nasal polyps (Primary Dx); Type 2 diabetes mellitus with hyperglycemia, unspecified whether director long term care insulin use (HCC); Allergic fungal sinusitis (AFS); Chronic rhinitis; Nasal polyposis; Uncomplicated asthma, unspecified asthma severity, unspecified whether persistent 12/21/2024 Orders Only [facility] [address] [place] [phone] Bernabe Cooper MD 12/02/2024 [facility] [address] [place] [address] Bernabe Cooper MD 11/17/2024 Telephone [facility] Otolaryngology [address] [place] [phone] Efrain Valeri, from Last 3 Months Allergies Active Allergy Reactions Criticality Noted Date [...] mouth every 6 (six) hours 120 tablet 11 08/03/19 23 Active hydrOXYzine (ATARAX) 10 mg tablet Take 1 tablet (10 mg total) by mouth every 4 (four) hours as needed for itching 90 tablet 1 08/03/19 23 Active mometasone (ELOCON) 0.1 % cream APPLY CREAM TOPICALLY ON FOREHEAD ONCE DAILY 09/01/19 23 Active albuterol 2.5 mg /3 mL (0.083 %) nebulizer solution Take 3 mL (2.5 mg total) by nebulization every 6 (six) hours as needed for wheezing or shortness of breath 60 mL 11 08/08/19 24 Active metFORMIN (GLUCOPHAGE) 500 mg tablet Take 1 tablet (500 mg total) by mouth 2 (two) times a day with meals 180 tablet 3 09/14/19 24 Active blood-glucose sensor (Fibrenetix Antonia 3 Sensor) device 1 Units every 2 (two) weeks Antonia 3 reader 2 units a month 2 each 09/25/19 24 Active testosterone 20.25 mg/1.25 gram (1.62 %) gel in metered-dose pump Apply 1 Pump topically daily 75 g 3 12/11/19 24 Active betamethasone dipropionate (DEL-BETA) 0.05 [...] the skin every 7 days 3 mL 3 02/28/20 24 Active montelukast (SINGULAIR) 10 mg tablet Take 1 tablet (10 mg total) by mouth nightly 90 tablet 02/28/20 24 Active blood-glucose sensor (FreeStyle Antonia [...] been able to tolerate his current CPAP [facility] care 04/26/2022 Assessment & Plan (12/11/2023 8:39 [...] currently Assessment & Plan (08/13/2018 3:52 PM VISCOSITY INSPECTOR): He was seen in emergency room had an x-ray of his cervical spine which showed evidence of possible C6-C7 disease he is having numbness tingling down his right arm X-ray is consistent with a cervical disc disease we will order an MRI consider orthopedic spine Malignant neoplasm screen 07/22/2018 Overview (07/22/2018): Added automatically from request for surgery [id number] Chest wall pain 07/15/2018 Assessment & Plan (05/21/2019 2:39 PM VISCOSITY INSPECTOR): We had a discussion today about his chest wall muscle discomfort I believe this is most likely musculoskeletal begin with an EKG to rule out cardiac etiology. Patient is improving somewhat from his asthma exacerbation. Assessment & Plan (07/22/2018 11:23 AM VISCOSITY INSPECTOR): Muscular: Treat with Naprosyn 500 mg 1 [...] mg Assessment & Plan (08/03/2022 10:46 AM VISCOSITY INSPECTOR): We had a long discussion about diabetes [...] insulin Assessment & Plan (06/11/2019 1:42 PM VISCOSITY INSPECTOR): I have reviewed past medical, surgical, family, [...] today Assessment & Plan (05/16/2018 1:05 PM VISCOSITY INSPECTOR): Diabetic control has been good with review [...] dictates he will be started on a Screamin Daily Deals system We will also refer him to [...] months. Assessment & Plan (08/28/2017 9:41 AM VISCOSITY INSPECTOR): Improved with lisinopril hydrochlorothiazide 10/12.5 mg daily. BMP today. Instructed patient he is to continue medication until instructed otherwise. Chronic sinusitis 08/28/2017 Assessment & Plan (08/28/2017 9:42 AM VISCOSITY INSPECTOR): Patient is scheduled for sinus surgery. He needed to get his blood pressure lower prior to surgery. This has been achieved today. Snoring 08/16/2017 Assessment & Plan (08/16/2017 9:24 AM VISCOSITY INSPECTOR): Refer to Dr. Clifton for sleep apnea evaluation. This may occur after surgery. Chronic rhinitis 08/13/2017 Chronic sinusitis 07/22/2017 BMI 35.0-35.9,adult 03/19/2017 Overview (12/12/2017): BMI Follow-up includes: nutrition counseling, exercise counseling and education provided. Assessment & Plan (06/11/2019 1:17 PM VISCOSITY INSPECTOR): BMI Follow-up includes: nutrition counseling, exercise counseling and education provided. Assessment & Plan (08/13/2018 3:28 PM VISCOSITY INSPECTOR): BMI Follow-up includes: nutrition counseling, exercise counseling and education provided. Assessment & Plan (07/22/2018 10:48 AM VISCOSITY INSPECTOR): BMI Follow-up includes: nutrition counseling, exercise counseling [...] issues. Assessment & Plan (08/28/2017 9:20 AM VISCOSITY INSPECTOR): BMI Follow-up includes: nutrition counseling, exercise counseling and education provided. Assessment & Plan (08/16/2017 8:51 AM VISCOSITY INSPECTOR): BMI Follow-up includes: nutrition counseling, exercise counseling [...] augmentin He was recently seen at an [facility] urgent care continues to have quite a [...] REFLUX Assessment & Plan (08/03/2022 10:46 AM VISCOSITY INSPECTOR): Stable on current regimen of Nexium 40 [...] 12/11/2023 Assessment & Plan (08/03/2022 10:51 AM VISCOSITY INSPECTOR): Reports no significant issues currently. Continues on Singulair/albuterol/nebulizer as needed Assessment & Plan (05/12/2019 2:17 PM VISCOSITY INSPECTOR): He had a recent visit to [facility] ED. I reviewed all of his diagnostic [...] syndrome 09/18/2018 022 Acute otitis media 08/28/2017 4 Assessment & Plan (08/28/2017 9:42 AM VISCOSITY INSPECTOR): Augmentin. Patient should contact his ENT and let him know that he is taking an antibiotic again. Elevated blood pressure reading 08/16/2017 08/28/2017 Assessment & Plan (08/16/2017 9:24 AM VISCOSITY INSPECTOR): Start lisinopril 10/hydrochlorothiazide 12.5 mg daily. Keep [...] has not have any new complaints current Immunizations Immunization Administration Dates Next Due Influenza, [...] 11/09/2022 Tdap 11/12/2022 ZOSTER Recombinant 08/03/2022,05/07/2022, 020 Social History Tobacco Use Types Packs/Day Years [...] on file Legal Sex Male 9:23 PM VISCOSITY INSPECTOR Gender Identity Male 03/12/2022 10:01 PM CDT Sexual Orientation Straight 03/12/2022 10 :01 PM CDT Occupation Industry Job Start Date Job End Date working Not on file Not on file Not on file Last Filed Vital Signs [...] 01/04/2025 10:23 AM CDT Plan of Treatment Not on file Procedures Procedure Name Priority Date/Time Associated Diagnosis [...] EXAM Routine 09/11/2023 COLONOSCOPY 08/28/2018 9:01 AM VISCOSITY INSPECTOR DIABETES FOOT EXAM Routine 01/02/2018 from Last [...] 2:21 PM CDT 12/11/2023 2:21 PM CDT us Bernabe Cooper MD LAB BLOOD ORDERABLES Final Result [facility] [address] [employer] [place] [address] * Hepatitis C antibody Blood [...] last revised on 2019. Testing performed by: [facility], [facility], [place]., [address] Blood 12/11/2023 2:21 PM CDT 12/11/2023 4:49 PM CDT Bernabe Cooper MD LAB MICROBIOLOGY - GENERAL ORDERABLES Edited Result - Final [facility] [address]. [place] [address] * eGFR (12/11/2023 2:20 PM CDT) eGFR [...] PM CDT 12/11/2023 2:25 PM CDT Bernabe oCoper MD LAB BLOOD ORDERABLES Final Result [facility] [address] [address]. [place] [address] * (ABNORMAL) Lipid panel (12/11/2023 2:20 PM [...] Pediatrics 2011;128:S213 2. NCEP Expert Panel. Circulation 2003;110:227 Current Interpretive Data was last revised on 2018. Chol/HDL ratio 5 [facility] Blood 12/11/2023 2:20 PM CDT 12/11/2023 2:25 PM CDT us Bernabe Cooper MD LAB BLOOD ORDERABLES Final Result [facility] [address] [address]. [place] [employer] [place] [address] * (ABNORMAL) Hemoglobin A1c (12/11/2023 2:18 PM CDT) Hgb A1C 7.0(H) 4.0 - 5.6 % Estimated Average Glucose 154 mg/dL [facility] Comment: The ADA recommends reporting an estimated Average Glucose (eAG) with all Hemoglobin A1c results using the equation derived from a study of 507 normal and diabetic adults. Minority populations were underrepresented and children were not included. (Diabetes Care 31:9245-9084, 2008). The eAG is not equivalent to a fasting glucose. Blood 12/11/2023 2:18 PM CDT 12/11/2023 2:18 PM CDT Bernabe Cooper MD LAB BLOOD ORDERABLES Final Result Performing Organization Address [facility] de Phone Number [facility] [address] [place] [address] * Albumin Creatinine Ratio, Urine (12/11/2023 2:11 PM CDT) Pathologist [facility] Albumin Ur <12.0 mg/L Comment: Interpretive Data No reference range established. Current interpretive data was last revised 2018. Testing performed by: [facility], [address] [place] [address]., [id number] Creatinine Ur 213.4 mg/dL [facility] Comment: Interpretive Data No reference range established. Current interpretive data was last revised 2018. Testing performed by: [facility], [address] [place] [address]., [id number] Albumin Creatinine Ratio, Ur <6 1 - 29 mg/g [facility] Comment:Testing performed by : [facility], [address] [place] [address]., [id number] Urine 12/11/2023 2:11 PM CDT 12/11/2023 2:11 PM CDT Bernabe Cooper MD LAB URINE ORDERABLES Final Result Performing Organization Address City/[facility]/ZIP Co de Phone Number [facility] [address] [place] [address] * Diabetic Eye Exam (09/11/2023) us Historical Provider HEALTH MAINTENANCE Final Result * COLONOSCOPY (08/28/2018 9:01 AM VISCOSITY INSPECTOR) Anatomical Region Laterality Modality Other Narrative Procedure Note Demetris Barbosa MD - 08/28/2018 9:01 AM CST ENDOSCOPY LAB Patient Name: Vamsi Conroy Procedure Date: 08/28/2018 9:01 AM Date of : 1965 Admit Type: Outpatient Age: 52 Gender: Male Attending MD: Demetris Barbosa M.D. Room: [facility] 02 Note Status: Finalized Procedure: Colonoscopy Indications: Screening [...] Thescope was passed under direct vision. The [id number] introduced through the anus and advanced to the cecum, identified by appendiceal orifice and ileocecal valve.The colonoscopy was performed without difficulty. Thepatient tolerated the procedure well. The quality of the bowel preparation was evaluated using the BBPS ([place] Bowel Preparation Scale) with scores of: Right [...] 0 Note Initiated On: 08/28/2018 9:01 AM us Demetris Barbosa MD ENDOSCOPY PROCEDURES Fi nal Result * DIABETES FOOT EXAM (01/02/2018) Diabetic Foot Exam Normal us Historical Provider HEALTH MAINTENANCE Final Result from Last 3 Months or Most Recently Relevant to Health Maintenance [facility] [employer] [facility] HMO Advance Directives For more information, please contact: [phone] * Full Code (Latest Code Status on File) Date Activated Date Inactivated Comments 08/28/2018 8:27 AM 08/28/2018 2:41 PM Care Teams Project Construction Assistant Manager Relationship Specialty Start Date End Date Bernabe Cooper MD PCP - General Internal Medicine 10/28/17 Demetris Barbosa MD Surgeon Colon and Rectal Surgery 05/16/22
== END 2025-01-14 12:56 | disposition home or self-care (01) ==
DX: J33.9 Nasal polyp, unspecified (principal); J34.2 Deviated nasal septum
CPT/HCPCS: 70486